=== PATIENT | female | born 1930 | race Caucasian/White ===

== ENCOUNTER 2016-10-07 18:26 | Emergency (ER) | payer MEDICARE, OTHER ==
[2016-10-07 18:54] VITALS: BP 144/69
[2016-10-07] MEDS ORDERED: Morphine 2 MG/ML Syringe IVPUSH ONE (19:38)
--- NOTE | 2016-10-07 19:38 | EDM.PDOC ---
ED HPI Trauma - General Chief Complaint: Lower Extremity Injury/Pain Time Seen by Provider: 10/07/16 19:15 Source: Reports: Patient, Family History Limitations: Reports: No limitations - History of Present Illness INITIAL COMMENTS - FREE TEXT/NARRATIVE: This 85 yo female patient was brought to the ED with left hip pain due to a ground level fall. The patient's spouse reports the patient was sitting out on the back deck, had 1 drink (patient had a light drink), and fell. The patient has dementia and could not give much of a history. The patient's reports the patient fell while he was inside. The neighbor reports the patient was talking right after the fall. The reports the patient was talking to him right after he saw her. Symptom Onset Date: 10/07/16 Occurred When: just prior to arrival Occurred Where: home Method of Injury: fall Severity: moderate Pain/Injury Location: Reports: lower extremity, left Consciousness: Reports: no loss of consciousness Associated Symptoms: Reports: no other symptoms Allergies/ADRs: Allergies acetazolamide Allergy (Verified 10/07/16 18:54) Cannot Remember donepezil HCl [From Aricept] Allergy (Verified 10/07/16 18:54) Cannot Remember Home Medications: Ambulatory Orders ALPRAZolam [Alprazolam ODT] 0.5 mg PO BID 07/18/13 [Confirmed 06/17/14] Aspirin [Ecotrin] 325 mg PO DAILY 07/18/13 [Confirmed 10/07/16] Brimonidine Tartrate/Timolol [Combigan Eye Drops] 2 drop EYEBOTH DAILY 07/18/13 [Confirmed 10/07/16] Multivitamin [Multivitamins] 1 each PO DAILY 07/18/13 [Confirmed 10/07/16] Sennosides [Senokot] 8.6 mg PO DAILY 09/23/13 [Confirmed 10/07/16] Albuterol [Proventil HFA] 2 sprays IH Q6HR 06/16/14 [Confirmed 10/07/16] Simvastatin [Zocor] 40 mg PO BEDTIME 06/16/14 [Confirmed 10/07/16] Escitalopram [Lexapro] 10 mg PO DAILY 10/07/16 [Confirmed 10/07/16] amLODIPine [Norvasc] 5 mg PO DAILY 10/07/16 [Confirmed 10/07/16] Past Medical History Cardiovascular History: Reports: Hypertension Gastrointestinal History: Reports: Chronic constipation Social & Family History - Tobacco Use Second Hand Smoke Exposure: No - Alcohol Use Days Per Week of Alcohol Use: 2 Number of Drinks Per Day: 1 Total Drinks Per Week: 2 - Recreational Drug Use Recreational Drug Use: No Review of Systems - Review of Systems Review Of Systems: ROS reveals no pertinent complaints other than HPI. Trauma Exam - Physical Exam Exam: See Below Exam Limited By: No limitations General Appearance: Reports: alert, WD/WN, moderate distress Head: Reports: scalp hematoma (posterior head) Eyes: bilateral eye: EOMI, normal inspection, PERRL Ears: Reports: normal external exam, normal canal, hearing grossly normal, normal TMs Nose: Reports: normal inspection, normal mucousa, no blood Throat/Mouth: Reports: Normal inspection, Normal lips, Normal teeth, Normal gums , Normal oropharynx, Normal voice, No airway compromise Neck: Reports: non-tender, full range of motion, normal alignment, normal inspection Respiratory Exam: Reports: no respiratory distress, lungs clear, normal breath sounds Cardiovascular: Reports: normal peripheral pulses, regular rate, rhythm, no edema, no gallop, no JVD, no murmur, no rub GI/Abdominal: Reports: normal bowel sounds, soft, non tender, no organomegaly, no distention, no abnormal bruit, no mass (Female) Exam: Deferred Rectal (Female) Exam: Deferred Extremities: Reports: bony-point tenderness (left hip), pain with movement ( left hip), tenderness (left hip) Neurologic: Reports: alert, normal mood/affect, other (the patient has dementia and is acting normal according to spouse) Skin: Reports: Normal color, Warm/dry - Mel Coma Score Best Eye Response ([place]): (4) open spontaneously Best Verbal Response ([place]): (5) oriented Best Motor Response ([place]): (6) obeys commands Mel Total: 15 Course - Vital Signs Last Recorded V/S: Last Vital Signs Temp 36.6 C 10/07/16 18:30 Pulse 61 10/07/16 18:30 Resp 18 10/07/16 18:30 BP 144/69 H 10/07/16 18:30 Pulse Ox 97 10/07/16 18:30 Departure - Departure Time of Disposition: 19:45 Disposition: DC/Tfer to Acute Hospital 02 Condition: poor Clinical Impression: Closed left hip fracture Qualifiers: Encounter type: initial encounter Qualified Code(s): S72.002A - Fracture of unspecified part of neck of left femur, initial encounter for closed fracture Forms: ED Department Discharge Care Plan Goals: Discussed the history, examination and CT results with Dr. Kidd (orthopedics with [facility] in [place]). Dr. Kidd accepted the patient for continued evaluation and further management at [facility] in [place]. The patient will be transported by [facility].
== END 2016-10-07 20:09 ==
LOC: DL.ED 18:26
DX: S72.002A Fracture of unspecified part of neck of left femur, initial encounter for closed fracture (principal); I10 Essential (primary) hypertension; Z79.899 Other long term (current) drug therapy; Z79.82 Long term (current) use of aspirin; Z88.8 Allergy status to other drugs, medicaments and biological substances; W19.XXXA Unspecified fall, initial encounter; Y92.099 Unspecified place in other non-institutional residence as the place of occurrence of the external cause
CPT/HCPCS: 72192; 99284

== ENCOUNTER 2017-04-28 11:40 | Emergency (ER) | payer MEDICARE, OTHER, MEDICAID ==
[2017-04-28 12:29] LABS: CHLORIDE,CL 105 mmol/L (101-111); SODIUM,NA 140 mmol/L (135-145)
[2017-04-28] MEDS ORDERED: Pantoprazole 40 MG Vial IVPUSH ONE (13:27)
[2017-04-28] MEDS ORDERED: Sodium Chloride 0.9% 1,000 ML IV ONE (13:34)
--- NOTE | 2017-04-28 13:40 | EDM.PDOC ---
ED HPI GENERAL MEDICAL PROBLEM - General Chief Complaint: Gastrointestinal Problem Stated Complaint: SICK Time Seen by Provider: 04/28/17 12:00 Source of Information: Reports: Patient, Family, Fdc Records History Limitations: Reports: Altered Mental Status (Dementia) - History of Present Illness INITIAL COMMENTS - FREE TEXT/NARRATIVE: This 86 yo female patient was sent to the ED from the [place] [facility] due to vomiting a coffee ground substance (foul smelling). The patient's reports she ate Thanksgiving Dinner yesterday, but became sick at about 0300 in the morning. The patient has dementia and difficulties communicating. Onset: Today Onset Date: 04/28/17 Onset Time: 03:00 Duration: Constant Location: Reports: Abdomen Quality: Reports: Other Severity: Mild Improves with: Reports: None Worsens with: Reports: None Associated Symptoms: Reports: Nausea/Vomiting - Related Data Allergies Allergy/AdvReac Type Severity Reaction Status Date / Time acetazolamide Allergy Cannot Verified 04/28/17 11:58 Remember donepezil HCl [From Aricept] Allergy Cannot Verified 04/28/17 11:58 Remember Home Meds: Home Meds Aspirin [Ecotrin] 81 mg PO DAILY 07/18/13 [History] Brimonidine Tartrate/Timolol [Combigan Eye Drops] 1 drop EYEBOTH DAILY 07/18/13 [History] Multivitamin [Multivitamins] 1 each PO DAILY 07/18/13 [History] Sennosides [Senokot] 8.6 mg PO DAILY 09/23/13 [History] Simvastatin [Zocor] 20 mg PO BEDTIME 06/16/14 [History] Escitalopram [Lexapro] 5 mg PO DAILY 10/07/16 [History] Acetaminophen [Acetaminophen ER] 650 mg PO BID 04/28/17 [History] Acetaminophen [Tylenol Extra Strength] 1,000 mg PO DAILY 04/28/17 [History] Past Medical History HEENT History: Reports: Cataract, Glaucoma, Impaired Vision Cardiovascular History: Reports: Hypertension Gastrointestinal History: Reports: Chronic Constipation [employer] History: Reports: Ectopic Musculoskeletal History: Reports: Fracture, Osteoarthritis Neurological History: Reports: Alzheimers Disease, Seizure Hematologic History: Reports: Blood Transfusion(s) - Past Surgical History HEENT Surgical History: Reports: Cataract Surgery Female Surgical History: Reports: Salpingo-Oophorectomy Musculoskeletal Surgical History: Reports: Other (See Below) Other Musculoskeletal Surgeries/Procedures:: Hip Fracture Social & Family History - Family History Family Medical History: Noncontributory - Tobacco Use Smoking Status *Q: Never Smoker Second Hand Smoke Exposure: No - Caffeine Use Caffeine Use: Reports: Coffee - Alcohol Use Days Per Week of Alcohol Use: 2 Number of Drinks Per Day: 1 Total Drinks Per Week: 2 - Recreational Drug Use Recreational Drug Use: No ED ROS GENERAL - Review of Systems Review Of Systems: ROS reveals no pertinent complaints other than HPI. ED EXAM, GI/ABD - Physical Exam Exam: See Below Exam Limited By: Altered Mental Status (dementia) General Appearance: Alert, Anxious, Moderate Distress Eyes: Bilateral: Normal Appearance, EOMI Ears: Normal External Exam, Normal Canal, Hearing Grossly Normal, Normal TMs Nose: Normal Inspection, Normal Mucosa, No Blood Throat/Mouth: Normal Inspection, Normal Lips, Normal Teeth, Normal Gums, Normal Oropharynx, Normal Voice, No Airway Compromise Head: Atraumatic, Normocephalic Neck: Normal Inspection, Supple, Non-Tender, Full Range of Motion Respiratory/Chest: No Respiratory Distress, Lungs Clear, Normal Breath Sounds, No Accessory Muscle Use, Chest Non-Tender Cardiovascular: Normal Peripheral Pulses, Regular Rate, Rhythm, No Edema, No Gallop, No JVD, No Murmur, No Rub GI/Abdominal Exam: Normal Bowel Sounds, Soft, Non-Tender, No Distention, No Abnormal Bruit, No Mass, Pelvis Stable (Female) Exam: Deferred Rectal (Female) Exam: Deferred Back Exam: Normal Inspection, Full Range of Motion, NT Extremities: Normal Inspection, Normal Range of Motion, Non-Tender, Normal Capillary Refill, No Pedal Edema Neurological: Alert, No Motor/Sensory Deficits, Confused (due to dementia) Psychiatric: Anxious, Flat Affect Skin Exam: Warm, Dry, Intact, Normal Color, No Rash Lymphatic: No Adenopathy Course - Vital Signs Last Recorded V/S: Last Vital Signs Temp 36.7 C 04/28/17 11:49 Pulse 88 04/28/17 11:49 Resp 16 04/28/17 11:49 BP 132/68 04/28/17 11:49 Pulse Ox 94 L 04/28/17 11:49 - Orders/Labs/Meds Orders: Active Orders 24 hr Category Date Time Status Sodium Chloride 0.9% [Normal Saline] 1,000 ml Med 04/28/17 13:34 Active IV .BOLUS Medication Orders Sodium Chloride (Normal Saline) 1,000 mls @ 250 mls/hr IV .BOLUS ONE Stop: 04/28/17 17:33 Last Admin: 04/28/17 14:22 Dose: 250 mls/hr Labs: Laboratory Tests 04/28/17 04/28/17 04/28/17 Range/Units 12:02 12:02 12:02 WBC 9.6 (5.0-10.0) 10^3/uL RBC 4.81 (4.2-5.4) 10^6/uL Hgb 14.6 (12.0-16.0) g/dL Hct 44.8 (37.0-47.0) % MCV 93.1 (80-100) fL MCH 30.4 (27.0-34.0) pg MCHC 32.6 L (33.0-35.0) g/dL Plt Count 266 (150-450) 10^3/uL Neut % (Auto) 80.0 H (42.2-75.2) % Lymph % (Auto) 11.2 L (20.5-50.1) % [place] % (Auto) 7.9 (2-8) % Eos % (Auto) 0.7 L (1.0-3.0) % Baso % (Auto) 0.2 (0.0-1.0) % PT 9.9 (9.0-12.0) SEC INR 1.0 (0.9-1.2) Sodium 140 (135-145) mmol/L Potassium 3.4 L (3.6-5.0) mmol/L Chloride 105 (101-111) mmol/L Carbon Dioxide 21.0 (21.0-31.0) mmol/L Anion Gap 17.4 BUN 18 (7-18) mg/dL Creatinine 0.7 (0.6-1.3) mg/dL Est Cr Clr Drug Dosing 60.35 mL/min Estimated GFR (MDRD) > 60 BUN/Creatinine Ratio 25.71 Glucose 148 H (74-105) mg/dL Calcium 9.1 (8.4-10.2) mg/dl Total Bilirubin 0.6 (0.2-1.0) mg/dL AST 28 (10-42) IU/L ALT 22 (10-60) IU/L Alkaline Phosphatase 74 (42-121) IU/L Total Protein 7.3 (6.7-8.2) g/dl Albumin 3.7 (3.2-5.5) g/dl Globulin 3.6 Albumin/Globulin Ratio 1.03 Urine Color (YELLOW) Urine Appearance (CLEAR) Urine pH (5.0-9.0) Ur Specific [place] (1.005-1.030) Urine Protein (NEGATIVE) Urine Glucose (UA) (NEGATIVE) Urine Ketones (NEGATIVE) Urine Occult Blood (NEGATIVE) Urine Nitrite (NEGATIVE) Urine Bilirubin (NEGATIVE) Urine Urobilinogen (0.2-1.0) mg/dL Ur Leukocyte Esterase (NEGATIVE) Urine RBC /HPF Urine WBC (0-5/HPF) /HPF Ur Epithelial Cells /HPF Urine Bacteria (0-FEW/HPF) /HPF Urine Mucus /LPF 04/28/ Range/Units 13:50 WBC (5.0-10.0) 10^3/uL RBC (4.2-5.4) 10^6/uL Hgb (12.0-16.0) g/dL Hct (37.0-47.0) % MCV (80-100) fL MCH (27.0-34.0) pg MCHC (33.0-35.0) g/dL Plt Count (150-450) 10^3/uL Neut % (Auto) (42.2-75.2) % Lymph % (Auto) (20.5-50.1) % [place] % (Auto) (2-8) % Eos % (Auto) (1.0-3.0) % Baso % (Auto) (0.0-1.0) % PT (9.0-12.0) SEC INR (0.9-1.2) Sodium (135-145) mmol/L Potassium (3.6-5.0) mmol/L Chloride (101-111) mmol/L Carbon Dioxide (21.0-31.0) mmol/L Anion Gap BUN (7-18) mg/dL Creatinine (0.6-1.3) mg/dL Est Cr Clr Drug Dosing mL/min Estimated GFR (MDRD) BUN/Creatinine Ratio Glucose (74-105) mg/dL Calcium (8.4-10.2) mg/dl Total Bilirubin (0.2-1.0) mg/dL AST (10-42) IU/L ALT (10-60) IU/L Alkaline Phosphatase (42-121) IU/L Total Protein (6.7-8.2) g/dl Albumin (3.2-5.5) g/dl Globulin Albumin/Globulin Ratio Urine Color Yellow (YELLOW) Urine Appearance Clear (CLEAR) Urine pH 6.0 (5.0-9.0) Ur Specific [place] 1.025 (1.005-1.030) Urine Protein 30 H (NEGATIVE) Urine Glucose (UA) Negative (NEGATIVE) Urine Ketones Trace H (NEGATIVE) Urine Occult Blood Negative (NEGATIVE) Urine Nitrite Negative (NEGATIVE) Urine Bilirubin Negative (NEGATIVE) Urine Urobilinogen 0.2 (0.2-1.0) mg/dL Ur Leukocyte Esterase Small H (NEGATIVE) Urine RBC 0-5 /HPF Urine WBC 5-10 H (0-5/HPF) /HPF Ur Epithelial Cells Few /HPF Urine Bacteria Many H (0-FEW/HPF) /HPF Urine Mucus Not seen /LPF Meds: Medications Generic Name Dose Route Start Last Admin Trade Name Freq PRN Reason Stop Dose Admin Sodium Chloride 1,000 mls @ 250 mls/hr 04/28/17 13:34 04/28/17 14:22 Normal Saline IV 04/28/17 17:33 250 mls/hr .BOLUS ONE Administration Discontinued Medications Generic Name Dose Route Start Last Admin Trade Name Freq PRN Reason Stop Dose Admin Pantoprazole Sodium 80 mg 04/28/17 13:27 04/28/17 14:22 Protonix Iv IVPUSH 04/28/17 13:28 80 mg .BOLUS ONE Administration Departure - Departure Time of Disposition: 16:30 Disposition: DC/Tfer to [facility] 63 Condition: Fair Clinical Impression: Ileus, unspecified, Small bowel obstruction - Discharge Information Forms: ED Department Discharge Care Plan Goals: The patient's and [place] were advised of the examination, lab and CT results during the visit. The patient was given IV fluids, IV Protonix and IV Zofran while in the ED. Discontinue all of the patient's medications at this time except Brimonidine Tartrate Solution and Dulcolax suppository. Add the following medications: 1) Tylenol Suppository (650 mg) to given 1 suppository 3 times per day, 2) Zofran ODT (4 mg) to get 1 by mouth 3 times per day and every 6 hours as needed for nausea and vomiting. The patient should be placed on a full liquid diet. Direct any questions regarding the patient's care to Shania Kenny. If the patient has any additional symptoms or concerns, the patient should follow-up with her primary care facility or return to the emergency department. - My Orders Last 24 Hours: My Active Orders 04/28/17 13:34 Sodium Chloride 0.9% [Normal Saline] 1,000 ml IV .BOLUS - Assessment/Plan Last 24 Hours: My Active Orders 04/28/17 13:34 Sodium Chloride 0.9% [Normal Saline] 1,000 ml IV .BOLUS
[2017-04-28] MEDS ORDERED: Ondansetron 4 MG/2 ML SDV IV ONE (16:27)
== END 2017-04-28 16:45 ==
LOC: DL.ED 11:40
DX: K56.7 Ileus, unspecified (principal); K56.609 Unspecified intestinal obstruction, unspecified as to partial versus complete obstruction; G30.9 Alzheimer's disease, unspecified; I10 Essential (primary) hypertension; Z79.82 Long term (current) use of aspirin; Z79.899 Other long term (current) drug therapy; Z88.8 Allergy status to other drugs, medicaments and biological substances
CPT/HCPCS: 36415; 74176; 80053; 81001; 82272; 85025; 85610; 96361; 96374; 96375; 99284; C9113; J2405; J7030